=== PATIENT | female | born 1990 | race Hispanic/Latino ===

== ENCOUNTER 2019-12-01 11:35 | Inpatient (IN) | payer BC, SELFPAY ==
[2019-12-01] VITALS (83 sets, daily range): BP systolic 108–157; BP diastolic 46–125; PULSE 66–295; RESP 16; TEMP 36.6–37.2; O2SAT 99–100; BMI 30.8
[2019-12-01 12:56] LABS: Basophils Percent Auto 0.2 % (0.2-1.2); Eosinophils Percent Auto 0.1 % (0-4.4); Hematocrit 42.6 % (37.0-47.0); Hemoglobin 14.5 g/dL (12.0-15.0); Immature Granulocyte Absolute 0.06 K/mm3 (0.00-0.031); Immature Granulocyte Percent A 0.4 % (0-0.5); Lymphocytes Absolute Auto 1.98 K/mm3 (0.9-3.2); Lymphocytes Percent Auto 12.9 % (18.3-44.2); Mean Corpuscular Hemoglobin 29.2 pg (26-34); Mean Corpuscular Volume 85.9 fl (80-100); Mean Platelet Volume 11.5 fl (7.4-10.4); Monocytes Percent Auto 6.4 % (2.6-8.5); Neutrophils Absolute Auto 12.3 K/mm3 (1.3-6.7); Platelet Count Result 253 k/mm3 (150-375); Red Blood Count 4.96 M/mm3 (4.2-5.4); Red Cell Distribution Width 12.9 % (11.5-14.5); White Blood Count 15.4 K/mm3 (4.5-10.0)
[2019-12-01] MEDS: LACTATED RINGERS 1,000 ML 125 ML IV CONT ×2 (13:10→13:43)
--- NOTE | 2019-12-01 13:31 | LDADM ---
This patient, Eve Edmonds, was admitted to Labor/Delivery/Recovery 105 on 12/01/19 at 12:13. Plans for labor, pain management and were discussed with patient. Patient/family oriented to hospital policies and general routines including ID bracelet, bed and alarms, visiting hours, pain management, procedures, bathroom and other care routines, personal items, smoking policy, room service/diet and guest tray routines, infant security routines, and visiting hours. Patient/Family are encouraged to report perceived risks to care and to ask questions if they do not understand what they are told or what they should do. See OBIX for further documentation.
--- NOTE | 2019-12-01 15:42 | PM.IMHP ---
H&P: HPI History of Present Illness Chief complaint: contractions Narrative: Eev Edmonds is a 28 year old female Admitted via ambulance for active labor at 5-6 cm. Contractions started at approximately 130. Her primary OB is Dr. Christy. By sure LMP 02/26/19 her EDC is 12/03/19. She did have an [id number] ultrasound that was six days discrepant from her EDC by LMP and put her an EDC of 12/09/19. I am going by an EDC 12/03/19 since not more than 7 day discrepancy. One prior at term, no complications 6lb5oz. Her record and labs reviewed. GBS negative. 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 She denies ever having any HSV lesions. She currently denies any prodromal symptoms or lesions. She has a h/o MTHFR 2 copies and was on 160mg ASA daily. Did not see a homocysteine level in chart. She denies any personal or family history of blood clots. Review of Systems Review of Systems: All systems reviewed & are unremarkable except as noted in HPI and below Constitutional: Constitutional: Reports no additional constitutional complaints and Denies headache(s) Eyes: Eyes: Denies spots in vision ENT: Reports system reviewed and no additional complaints, except as documented and Denies headache(s) Cardiovascular: Cardiovascular: Denies chest pain and Denies dyspnea Respiratory: Respiratory: Denies dyspnea Gastrointestinal: Gastrointestinal: Reports no additional gastrointestinal complaints Genitourinary: Genitourinary: Reports amenorrhea Musculoskeletal: Musculoskeletal: Reports no additional musculoskeletal complaints Integumentary/Breasts: Skin/Breast: Denies breast mass and Denies rash Neurologic: Denies headache(s) Psychiatric: Psychiatric: Reports no additional psychiatric complaints [facility] Past Medical History Medical History (Updated 12/01/19 @ 15:52 by Fabrice High MD) Active labor Family History Family History Other Unknown family medical history Social History Social History Smoking status: Never smoker Substance use: never Spiritual care concerns: No Meds Home Medications and Allergies Home Medications Medication Instructions Recorded Confirmed Type PNV cmb#95-ferrous fumarate-FA 1 tablet PO DAILY 12/01/19 12/01/19 History [] acyclovir 800 mg PO DAILY 12/01/19 12/01/19 History aspirin [Aspirin Low Dose] 81 mg PO DAILY 12/01/19 12/01/19 History calcium carbonate-vitamin D3 1 tablet PO DAILY 12/01/19 12/01/19 History [Oysco 500/D] progesterone micronized 200 mg PO DAILY 12/01/19 12/01/19 History Allergies Allergy/AdvReac Type Severity Reaction Status Date / Time No Known Allergies Allergy Verified 12/01/19 13:04 Vital Signs Vital Signs - 24 hr 12/01/19 11:53 12/01/19 12:01 12/01/19 12:31 Pulse Rate 91 86 295 H Blood Pressure 134/87 127/85 129/106 H Pulse Oximetry 12/01/19 12:48 12/01/19 13:01 12/01/19 13:31 Pulse Rate 86 76 86 Blood Pressure 140/76 125/85 130/67 Pulse Oximetry 12/01/19 13:44 12/01/19 13:49 12/01/19 13:54 Pulse Rate Blood Pressure Pulse Oximetry 100 100 100 12/01/19 13:56 12/01/19 13:58 12/01/19 13:59 Pulse Rate 78 97 Blood Pressure 132/76 123/99 H Pulse Oximetry 100 12/01/19 14:01 12/01/19 14:04 12/01/19 14:07 Pulse Rate 88 84 82 Blood Pressure 130/77 127/77 126/70 Pulse Oximetry 100 12/01/19 14:09 12/01/19 14:10 12/01/19 14:13 Pulse Rate 80 76 Blood Pressure 130/72 128/75 Pulse Oximetry 100 12/01/19 14:14 12/01/19 14:16 12/01/19 14:19 Pulse Rate 78 85 Blood Pressure 130/69 124/76 Pulse Oximetry 100 100 12/01/19 14:22 12/01/19 14:24 12/01/19 14:25 Pulse Rate 93 72 Blood Pressure 132/73 126/72 Pulse Oximetry 100
--- NOTE | 2019-12-01 15:53 | PM.GYNPNOP ---
JOY LOADER - A/P Time Spent With Patient Time: Total time spent is greater than 50% in coordination of care (as documented) at patient's floor/unit and/or counseling patient: Time with patient: less than 15 minutes JOY LOADER- PN:Khalida Post-Op Subjective Date/time seen: 12/01/19 15:53 FHT 135-140 Cat 1, ctx mild, q 2-3, AROM scant particulate meconium. Cervix 7/90/-1. Discussed meconium management and will have peds available at delivery. Continue expectant management. JOY LOADER - PN: Obj Data Vital Signs Vital Signs: Vital Signs - 24 hr 12/01/19 11:53 12/01/19 12:01 12/01/19 12:31 Pulse Rate 91 86 295 H Blood Pressure 134/87 127/85 129/106 H Pulse Oximetry 12/01/19 12:48 12/01/19 13:01 12/01/19 13:31 Pulse Rate 86 76 86 Blood Pressure 140/76 125/85 130/67 Pulse Oximetry 12/01/19 13:44 12/01/19 13:49 12/01/19 13:54 Pulse Rate Blood Pressure Pulse Oximetry 100 100 100 12/01/19 13:56 12/01/19 13:58 12/01/19 13:59 Pulse Rate 78 97 Blood Pressure 132/76 123/99 H Pulse Oximetry 100 12/01/19 14:01 12/01/19 14:04 12/01/19 14:07 Pulse Rate 88 84 82 Blood Pressure 130/77 127/77 126/70 Pulse Oximetry 100 12/01/19 14:09 12/01/19 14:10 12/01/19 14:13 Pulse Rate 80 76 Blood Pressure 130/72 128/75 Pulse Oximetry 100 12/01/19 14:14 12/01/19 14:16 12/01/19 14:19 Pulse Rate 78 85 Blood Pressure 130/69 124/76 Pulse Oximetry 100 100 12/01/19 14:22 12/01/19 14:24 12/01/19 14:25 Pulse Rate 93 72 Blood Pressure 132/73 126/72 Pulse Oximetry 100 12/01/19 14:28 12/01/19 14:29 12/01/19 14:31 Pulse Rate 85 76 Blood Pressure 128/76 128/71 Pulse Oximetry 100 12/01/19 14:34 12/01/19 14:37 12/01/19 14:39 Pulse Rate 102 H 81 Blood Pressure 125/78 130/76 Pulse Oximetry 100 100 12/01/19 14:40 12/01/19 14:43 12/01/19 14:44 Pulse Rate 90 105 H Blood Pressure 128/71 121/85 Pulse Oximetry 12/01/19 14:46 12/01/19 14:49 12/01/19 14:52 Pulse Rate 100 93 75 Blood Pressure 140/73 140/84 133/71 Pulse Oximetry 12/01/19 14:54 12/01/19 14:55 12/01/19 14:58 Pulse Rate 85 95 Blood Pressure 133/79 128/81 Pulse Oximetry 12/01/19 15:01 12/01/19 15:04 12/01/19 15:07 Pulse Rate 79 78 90 Blood Pressure 127/74 128/73 125/74 Pulse Oximetry 12/01/19 15:10 12/01/19 15:13 12/01/19 15:16 Pulse Rate 92 95 93 Blood Pressure 131/76 125/77 126/77 Pulse Oximetry 12/01/19 15:19 12/01/19 15:22 12/01/19 15:25 Pulse Rate 81 78 82 Blood Pressure 130/80 132/80 127/75 Pulse Oximetry 12/01/19 15:28 12/01/19 15:31 12/01/19 15:34 Pulse Rate 91 78 85 Blood Pressure 132/75 130/76 130/77 Pulse Oximetry 12/01/19 15:37 12/01/19 15:40 12/01/19 15:43 Pulse Rate 79 81 76 Blood Pressure 137/73 130/73 129/73 Pulse Oximetry 12/01/19 15:46 12/01/19 15:49 12/01/19 15:52 Pulse Rate 88 78 79 Blood Pressure 122/74 128/76 135/80 Pulse Oximetry Intake/Output Intake/Output: Intake & Output 11/28/19 11/29/19 11/30/19 12/01/19 23:59 23:59 23:59 23:59 Intake Total 1000 Balance 1000 Meds/Results Medications: Active Medications Generic Name Dose Route Start Last Admin Trade Name Freq PRN Reason Stop Dose Admin Fentanyl Citrate 50 mcg 12/01/19 12:14 Sublimaze IV PUSH Q1H PRN Pain Rated 5 or Less Fentanyl Citrate 100 mcg 12/01/19 12:14 Sublimaze IV PUSH Q1H PRN Pain Rated 6 or Greater Lactated Ringer's 1,000 mls @ 125 mls/hr 12/01/19 12:15 12/01/19 13:43 Lr - Lactated Ringers Iv IV CONT 125 mls/hr .Q8H LINNETTE Administration Oxytocin/Sodium Chloride 30 units in 500 mls @ 125 mls/hr 12/01/19 12:14 Oxytocin 30 Units/Ns 500 Ml IV CONT .Q4H PRN if not received in labor Oxytocin/Sodium Chloride 30 units in 500 mls @ 999 mls/hr 12/01/19 12:14 Oxytocin 30 Units/Ns 500 Ml IV CONT .Q31M PRN if not received in labor Naloxone HCl 0.1 mg 12/01/19
[2019-12-01] MEDS: OXYTOCIN 30 UNITS/NS 500 ML 30 UNITS/500 ML BAG 999 UNITS IV CONT (16:17)
--- NOTE | 2019-12-01 16:42 | PM.OBPRVD ---
OB - Delivery Note Procedure Delivery date: 12/01/19 Procedure: Spontaneous vaginal delivery events: Meconium Stained Fluid (small amount particulate ) Induction method: none Delivery augmentation: rupture of membranes (particule meconium) Delivery monitor: external FHT Route of delivery: Laceration description: Perineal - 2nd Degree Delivery repair: vicryl (3.0 simple interrupted) Specimen: No Estimated blood loss (mL): 150 Anesthesia type: Epidural Disposition: floor Complications: Left compound hand presentation Narrative: Patient admitted in active labor. She had requested epidural placed. She had AROM at approximately 1445. Small amount of particulate meconium seen. She progressed to complete. She pushed twice and delivered a male infant at 1613. There was a left compound hand presented. Infant was vigorously crying upon delivery and placed on maternal abdomen. Cord clamped and cut after 30sec and no pulses palpated. Scant particulate meconium drops seen otherwise fluid appeared not stained. Peds available in delivery. Cord blood gases and cord blood obtained. She sustained a second degree perineal laceration repaired with 3.0 vicryl. EBL 150cc. Patient tolerated procedure well. Baby Date of : 12/01/19 Time of : 16:13 Weeks of gestation at delivery: 39 Infant gender: Male Weight (pounds): 6 Weight (ounces): 1 presentation: vertex position: Right Occiput Anterior Placenta delivery description: Spontaneous score one minute: 8 score five minutes: 9
[2019-12-01] MEDS: OXYTOCIN 30 UNITS/NS 500 ML 30 UNITS/500 ML BAG 125 UNITS IV CONT (16:52)
[2019-12-01] MEDS: IBUPROFEN 600 MG TABLET PO (22:55)
[2019-12-02 05:20] LABS: Hematocrit 35.3 % (37.0-47.0)
[2019-12-02 07:17] LABS: Rapid Plasma Reagin Non-Reactive (NonReactive)
[2019-12-02] MEDS: IBUPROFEN 600 MG TABLET PO ×3 (08:04→22:19)
--- NOTE | 2019-12-02 09:00 | WPDANLDPN2 ---
Anes-Prog Note L&D Date/Time: 12/02/19 09:00 Comfortable throughout: labor and delivery Epidural/Spinal procedure site: clean & non-tender Neuro status: Neuro function grossly intact. Cardiovascular status: normal Respiratory status: normal Airway patency: baseline Mental status: baseline Post-Op hydration status: normal Vital Signs: Last Vital Signs Temp 37.1 C 12/01/19 20:00 Pulse 74 12/01/19 20:00 Resp 16 12/01/19 20:00 BP 118/77 12/01/19 20:00 Pulse Ox 99 12/01/19 20:00 I/O: Intake & Output 12/01/19 12/02/19 12/02/19 23:59 07:59 15:59 Intake Total 500 Output Total 150 Balance 350 Post-procedural complaints: none Patient feedback: Patient satisfied with anesthetic care.
[2019-12-02 09:05] VITALS: BP 130/77; PULSE 77; RESP 16; TEMP 37; O2SAT 100
--- NOTE | 2019-12-02 10:25 | PM.OBPNVD ---
OB - PN: Subj Subjective Date/time seen: 12/02/19 10:25 Infant is bottle feeding. Patient desires to go home if possible. Patient comments: pain well controlled, tolerating diet and other (Decreasing lochia.) baby status: doing well OB - PN: Obj Data Labs CBC & Chem 7: 12/02/19 04:59 Labs: Laboratory Results - last 24 hr 12/01/19 12/01/19 12/01/19 12:49 12:49 12:49 WBC 15.4 H RBC 4.96 Hgb 14.5 Hct 42.6 MCV 85.9 MCH 29.2 MCHC 34.0 RDW 12.9 Plt Count 253 MPV 11.5 H Immature Gran % (Auto) 0.4 Neut % (Auto) 80.0 H Lymph % (Auto) 12.9 L [place] % (Auto) 6.4 Eos % (Auto) 0.1 Baso % (Auto) 0.2 Lymph # (Auto) 1.98 [place] # (Auto) 1.0 H Eos # (Auto) 0.0 Baso # (Auto) 0.0 Abs Immat Gran (auto) 0.06 H Absolute Neuts (auto) 12.3 H Absolute Nucleated RBC 0.0 Nucleated RBC % 0.0 RPR Non-reactive Blood Type B Positive Antibody Screen Negative 12/02/19 04:59 WBC RBC Hgb 12.0 Hct 35.3 L MCV MCH MCHC RDW Plt Count MPV Immature Gran % (Auto) Neut % (Auto) Lymph % (Auto) [place] % (Auto) Eos % (Auto) Baso % (Auto) Lymph # (Auto) [place] # (Auto) Eos # (Auto) Baso # (Auto) Abs Immat Gran (auto) Absolute Neuts (auto) Absolute Nucleated RBC Nucleated RBC % RPR Blood Type Antibody Screen OB - PN A/P Plan day: 1 Plan: routine care Comments: Patient doing well. She is allowed to be discharged when baby can be discharged. Discussed discharge instructions. Time Spent With Patient Time: Total time spent is greater than 50% in coordination of care (as documented) at patient's floor/unit and/or counseling patient: Exam Psych: Affect: normal affect Other: Abd: fundus firm below umbilicus, nontender Perineum: healing, no swelling Ext: nontender
--- NOTE | 2019-12-02 10:27 | PM.DS ---
DS: Admitting Diagnosis Admitting Diagnosis Admitting Diagnosis: Active labor. DS: Discharge Diagnosis Discharge Diagnosis (1) Active labor: Status: Acute DS: Summary Time Spent with Patient Time attestation: Total time spent providing and/or coordinating discharge services: Exam Psych: Affect: normal affect Other: Abd: fundus firm below umbilicus, nontender Perineum: healing Ext: nontender DS: Data Data Completed and Pending Labs on day of discharge: Labs from last 24 hours 12/02/19 12/01/19 12/01/19 04:59 12:49 12:49 WBC RBC Hgb 12.0 Hct 35.3 L MCV MCH MCHC RDW Plt Count MPV Immature Gran % (Auto) Neut % (Auto) Lymph % (Auto) [place] % (Auto) Eos % (Auto) Baso % (Auto) Lymph # (Auto) [place] # (Auto) Eos # (Auto) Baso # (Auto) Abs Immat Gran (auto) Absolute Neuts (auto) Absolute Nucleated RBC Nucleated RBC % RPR Non-reactive Blood Type B Positive Antibody Screen Negative 12/01/19 12:49 WBC 15.4 H RBC 4.96 Hgb 14.5 Hct 42.6 MCV 85.9 MCH 29.2 MCHC 34.0 RDW 12.9 Plt Count 253 MPV 11.5 H Immature Gran % (Auto) 0.4 Neut % (Auto) 80.0 H Lymph % (Auto) 12.9 L [place] % (Auto) 6.4 Eos % (Auto) 0.1 Baso % (Auto) 0.2 Lymph # (Auto) 1.98 [place] # (Auto) 1.0 H Eos # (Auto) 0.0 Baso # (Auto) 0.0 Abs Immat Gran (auto) 0.06 H Absolute Neuts (auto) 12.3 H Absolute Nucleated RBC 0.0 Nucleated RBC % 0.0 RPR Blood Type Antibody Screen Discharge Plan Discharge Attending physician on discharge: Fabrice High Consulting providers: Fabrice High Discharging Clinician: Fabrice High Patient Disposition: Home, Self-Care Activity: may shower and pelvic rest Diet: regular Discharge Instructions: She should make follow up appointment with her primary OB or Dr. High. Pelvic rest for 4-6 weeks. Call if saturating more than a pad an hour, fever, leg pain and redness, swelling. Routine post vaginal delivery instructions. Education: Mom and Baby Guide Given to: Mother Follow-Up: Call your delivering provider's office for an appointment to be seen in: 6 Weeks Mom and baby should come to the [facility] for the follow-up appointment. Appointment Date/Time: December 04, 2019 at 9:00 am What to expect at your follow-up visit: Blood Pressure Check Physical Assessment Call [phone] if you are unable to keep your appointment time. BREAST CARE: 1. Wear a snug supportive bra. Bottle Feeding: A. May apply ice packs EPISIOTOMY/PERINEAL CARE: 1. Until bleeding stops, use your silvana bottle after urinating 2. Change your pad frequently throughout the day 3. You may take sitz baths several times a day (fill your bathtub with warm water and soak for 20 minutes.) Do NOT bathe in the water 4. No tub baths until seen by your physician - You may shower ACTIVITY: 1. Rest as much as possible. 2. Do not exercise or lift anything heavier than your baby (such as laundry or other children.) 3. Avoid stairs or driving as much as possible. 4. Do not put anything into the vagina. No douching, tampons, or sexual activity until seen by physician. NOTIFY PHYSICIAN IF YOU HAVE ANY QUESTIONS OR IF ANY OF THE FOLLOWING SYMPTOMS OCCUR: 1. If your vaginal bleeding becomes foul smelling. 2. If your vaginal bleeding becomes more heavy than a period or if your bleeding changes from pink to bright red. However, you may pass an occasional walnut-sized clot once or twice for the first week . 3. If you experience a sharp, shooting pain in you calves. 4. If you discover a hard, reddened area on your breast or if you experience flu-like symptoms. DIET: 1. Eat regular, well-balanced meals. 2. Drink plenty of fluids daily. If , drink to thirst. Stand Alone Forms: General Discharge Information Follow-
[2019-12-02 20:00] VITALS: BP 122/69; PULSE 62; RESP 16; TEMP 36.8; O2SAT 100
[2019-12-03 07:10] VITALS: BP 124/71; PULSE 61; RESP 18; TEMP 36.9; O2SAT 100
[2019-12-03] MEDS: IBUPROFEN 600 MG TABLET PO ×2 (07:13→13:11)
--- NOTE | 2019-12-03 12:29 | PM.OBPNVD ---
OB - PN: Subj Subjective Date/time seen: 12/03/19 12:29 Patient comments: pain well controlled, tolerating diet and other (Decreasing lochia.) baby status: doing well and nursing well OB - PN: Obj Data Labs CBC & Chem 7: 12/02/19 04:59 OB - PN A/P Plan day: 2 Plan: discharge home and other Comments: Patient doing well. Follow up 4-6 weeks. Discharge instructions provided. Time Spent With Patient Time: Total time spent is greater than 50% in coordination of care (as documented) at patient's floor/unit and/or counseling patient: Time with patient: less than 15 minutes Exam Psych: Affect: normal affect Other: Abd: fundus firm below umbilicus, nontender Perineum: healing Ext: nontender
--- NOTE | 2019-12-03 12:45 | PC.NURSE ---
Discharge instructions given to mom regarding self and . Mom verbalized understanding. Instructed pt. on follow up visit date and time. No questions or concerns verbalized. Very pleasant and cooperative. FOB at side.
--- NOTE | 2019-12-03 13:34 | PC.NURSE ---
Patient was given the opportunity to view the discharge video Mother & Baby Care, The First Two Weeks and to ask questions. Patient declined viewing the video and has been given the mother/baby guide for home reference.
== END 2019-12-03 13:40 | disposition home or self-care (01) | DRG 560 ==
LOC: ANHLDR 12:17 → ANHOB2 19:11
PROVIDERS: Admitting Provider Obstetrics & Gynecology; Visit Provider Obstetrics & Gynecology
DX: O76 Abnormality in fetal heart rate and rhythm complicating labor and delivery (principal); O77.0 Labor and delivery complicated by meconium in amniotic fluid; O70.1 Second degree perineal laceration during delivery; O32.6XX0 Maternal care for compound presentation, not applicable or unspecified; Z3A.38 38 weeks gestation of pregnancy; Z37.0 Single live birth
CPT/HCPCS: 36415; 85014; 85018; 85025; 86592; 86850; 86900; 86901; A9270; J2590; J2795; J7120